=== PATIENT | female | born 1970 | race Hispanic/Latino ===

== ENCOUNTER → 2019-07-12 | Emergency (ER) | payer OTHER ==
[~2019-07-12] VITALS: Ht 167.6 cm; Wt 88.9 kg
[~2019-07-12] MED LIST: ASPIRIN 81 MG CHEW TAB PO ONE; DIOVAN80 MG PO; DITROPAN XL5 MG PO; HYDRALAZINE HCL 20 MG/ML VIAL IV STA; IOPAMIDOL 370 MG/ML 200 ML INFUS..BTL INJ ONE; KETOROLAC TROMETHAMINE 30 MG/ML VIAL IV STA; LEVAQUIN500 MG PO; LORAZEPAM1 MG PO; METOPROLOL TART50 MG PO; ONDANSETRON HCL INJ 2MG/ML 2ML 2 MG/ML VIAL IV STA; SODIUM CHLORIDE 0.9% 100 ML ONE; SODIUM CHLORIDE 0.9% 1000ML 1,000 ML IV STA; TOPROL XL50 MG PO; TYLENOL WITH C1 EACH PO
--- NOTE | 2019-07-12 09:24 | NUR ---
[facility] BP 200/103
[2019-07-12 09:59] LABS: BASOPHILS % 0.3 % (0.0-1.0); EOSINOPHILS # (AUTO) 0.1 (0.0-0.4); HEMATOCRIT 40.2 % (34.2-44.1); HEMOGLOBIN 13.1 g/dL (12.0-16.0); LYMPHOCYTES # (AUTO) 2.3 (1.0-3.2); LYMPHOCYTES % 18.8 % (18.0-39.1); MEAN CORPUSCULAR HEMOGLOBIN 26.1 pg (28-32); MEAN CORPUSCULAR HGB CONC 32.6 g/dL (31-35); MEAN CORPUSCULAR VOLUME 80.2 fL (81-99); MONOCYTES # (AUTO) 0.5 (0.2-0.8); MONOCYTES % 4.1 % (4.4-11.3); NEUTROPHILS # (AUTO) 9.3 (2.1-6.9); NEUTROPHILS % 75.4 % (38.7-80.0); PLATELET COUNT 302 x10e3/uL (140-360); RED BLOOD COUNT 5.01 x10e6/uL (3.6-5.1); RED CELL DISTRIBUTION WIDTH 13.8 % (11.7-14.4)
[2019-07-12 10:27] LABS: ALANINE AMINOTRANSFERASE 13 IU/L (0-55); ALBUMIN 3.8 g/dL (3.5-5.0); ALKALINE PHOSPHATASE 87 IU/L (40-150); ANION GAP 16.5 mmol/L (8-16); BLOOD UREA NITROGEN 7 mg/dL (7-26); BUN/CREATININE RATIO 10 (6-25); CALCIUM 8.9 mg/dL (8.4-10.2); CARBON DIOXIDE 23 mmol/L (22-29); CHLORIDE 104 mmol/L (98-107); CREATINE KINASE 45 IU/L (29-168); CREATININE, SERUM 0.72 mg/dL (0.57-1.11); EST GLOMERULAR FILTRATION RATE > 60 ML/MIN (60-); GLUCOSE 137 mg/dL (74-118); POTASSIUM 3.5 mmol/L (3.5-5.1); SODIUM 140 mmol/L (136-145)
[2019-07-12 10:29] LABS: PARTIAL THROMBOPLASTIN TIME 33.7 seconds (23.8-35.5)
--- NOTE | 2019-07-12 10:59 | Diagnostic Imaging Report ---
Chest, 1 view, 07/12/2019. History: Chest pain. Comparison: None available. Findings: The cardiomediastinal silhouette and pulmonary vasculature are within normal limits for a portable exam. There is no focal consolidation or pleural effusion. There are no acute osseous or soft tissue abnormalities. Impression: No acute cardiopulmonary abnormality. Signed by: Tres Steel on 07/12/2019 10:56 AM
[2019-07-12 11:39] LABS: INR 0.95; PROTHROMBIN TIME 13.3 seconds (11.9-14.5)
--- NOTE | 2019-07-12 13:33 | Diagnostic Imaging Report ---
EXAM: CTA of the Chest WITH Contrast INDICATION: ^AORTIC PROTOCOL, CP UPPER BACK PAIN INTO BILAT ARMS ^[id number] ^[id number] COMPARISON: None. TECHNIQUE: Multi-detector CT technology was employed. CTA of the chest was performed , after the administration of IV contrast. IV CONTRAST: 150 mL of Omnipaque 350 ORAL CONTRAST: None COMPLICATIONS: None RADIATION DOSE: Total DLP: 473 mGy*cm Estimated effective dose: (DLP x 0.015 x size factor) mSv CTDIvol has been reviewed. It is below the limits set by the Radiation Protocol Committee (RPC). FINDINGS: Potential study limitations: None. CHEST: The chest wall, mediastinum, and pericardium are unremarkable. The pulmonary arteries appear normal. No significant adenopathy is identified in the axilla, mediastinum, and susana. Lung windows reveal no acute abnormalities. There is no pulmonary parenchymal mass or pleural effusion. The cardiac chambers demonstrate normal atrioventricular and ventriculoarterial concordance, and systemic and pulmonary venous return. The cardiac chamber sizes appear normal. The coronary arteries have normal origins and courses. There are no distinct coronary calcifications identified, though this study was not optimized for coronary artery evaluation. VASCULAR: Aortic valve morphology is incompletely assessed on this non-gated examination. The thoracic aorta is normal in course, caliber, and contour. There is no acute aortic pathology, such as dissection, intramural hematoma, or contained rupture. The arch vessel branching pattern is conventional. All of the arch branch vessels appear widely patent in their proximal portions. Offset Platemaker dimensions of the thoracic aorta are as follows: 2.1 cm at the aortic annulus 3 cm at the sinuses of Valsalva (the sinotubular junction is preserved) 2.3 cm at the mid ascending aorta 2.3 cm at the distal ascending aorta 2.4 cm at the mid transverse arch 2.4 cm at the proximal descending thoracic aorta 2.1 cm at the diaphragmatic hiatus. LIMITED ABDOMEN: The limited images of the upper abdomen reveal no abnormalities of the visualized organs. BONES: No acute bone abnormalities. IMPRESSION: Unremarkable CT angiogram of the chest. No acute aortic pathology. Signed by: Joe Valenzuela MD on 07/12/2019 1:30 PM
[2019-07-12 14:46] VITALS: BP 135/77
== END | disposition home or self-care (01) ==
LOC: ER 09:03
DX: R07.89 Other chest pain (principal); S29.012A Strain of muscle and tendon of back wall of thorax, initial encounter; I10 Essential (primary) hypertension; Z87.442 Personal history of urinary calculi; Z87.891 Personal history of nicotine dependence; I73.9 Peripheral vascular disease, unspecified; M79.601 Pain in right arm; M79.602 Pain in left arm; Z82.49 Family history of ischemic heart disease and other diseases of the circulatory system
CPT/HCPCS: 36415; 71045; 71275; 80053; 82550; 82553; 84484; 84702; 85025; 85610; 85730; 93005; 99284; J0360; J1885; J2405; J7030; J7050; Q9967

== ENCOUNTER → 2019-11-20 | Outpatient (CLI) | payer OTHER ==
[~2019-11-20] MED LIST changes: -ASPIRIN 81 MG CHEW TAB PO ONE; -HYDRALAZINE HCL 20 MG/ML VIAL IV STA; -IOPAMIDOL 370 MG/ML 200 ML INFUS..BTL INJ ONE; -KETOROLAC TROMETHAMINE 30 MG/ML VIAL IV STA; -ONDANSETRON HCL INJ 2MG/ML 2ML 2 MG/ML VIAL IV STA; -SODIUM CHLORIDE 0.9% 100 ML ONE; -SODIUM CHLORIDE 0.9% 1000ML 1,000 ML IV STA
== END ==
LOC: MAMMO 12:03
PROVIDERS: ATTEND Internal Medicine
DX: Z12.31 Encounter for screening mammogram for malignant neoplasm of breast (principal)
CPT/HCPCS: 77067

== ENCOUNTER 2020-07-21 10:31 | Emergency (ER) | payer OTHER ==
[~2020-07-21] VITALS: Ht 167.6 cm; Wt 88.9 kg
[2020-07-21] MEDS ORDERED: TRAMADOL HCL 50 MG TAB PO ONE (13:00)
== END 2020-07-21 13:26 | disposition home or self-care (01) ==
LOC: ER 11:45
DX: M23.92 Unspecified internal derangement of left knee (principal); W01.0XXA Fall on same level from slipping, tripping and stumbling without subsequent striking against object, initial encounter; Y93.01 Activity, walking, marching and hiking; Y92.008 Other place in unspecified non-institutional (private) residence as the place of occurrence of the external cause; I10 Essential (primary) hypertension; I73.9 Peripheral vascular disease, unspecified; Z87.442 Personal history of urinary calculi
CPT/HCPCS: 99284

== ENCOUNTER → 2020-08-24 | Outpatient (CLI) | payer OTHER | LOC: MAMMO 11:26 | PROVIDERS: ATTEND Obstetrics & Gynecology | DX: Z12.31 Encounter for screening mammogram for malignant neoplasm of breast (principal) | CPT/HCPCS: 77067 ==

== ENCOUNTER → 2022-08-18 | Outpatient (CLI) | payer OTHER | LOC: MAMMO 11:26 | PROVIDERS: ATTEND Obstetrics & Gynecology | DX: Z12.31 Encounter for screening mammogram for malignant neoplasm of breast (principal) | CPT/HCPCS: 77067 ==

== ENCOUNTER → 2024-11-26 | Outpatient (REF) | payer OTHER | LOC: MAMMO 11-19 15:46 | PROVIDERS: ATTEND Obstetrics & Gynecology | DX: Z12.31 Encounter for screening mammogram for malignant neoplasm of breast (principal) | CPT/HCPCS: 77067 ==